=== PATIENT | female | born 1995 | race Caucasian/White ===

== ENCOUNTER 2017-10-11 19:56 | Outpatient (CLI) | END 2017-10-12 00:36 | disposition home or self-care (01) ==

== ENCOUNTER 2017-12-29 05:39 | Inpatient (IN) | END 2018-01-01 14:40 | disposition home or self-care (01) | DRG 766 ==

== ENCOUNTER 2018-04-04 10:43 | Emergency (ER) | END 2018-04-04 12:50 | disposition home or self-care (01) ==